=== PATIENT | male | born 1995 | race Caucasian/White ===

== ENCOUNTER 2018-09-20 16:59 | Emergency (ER) | payer OTHER ==
[2018-09-20 17:17] VITALS: TEMP 98.1; BMI 25.8
[2018-09-20] MEDS ORDERED: ONDANSETRON 4 MG/2 ML VIAL IVPUSH ONE (18:02)
[2018-09-20] MEDS ORDERED: ACETAMINOPHEN 1000 MG/100 ML VIAL (NON FORMULARY) IVPB ONE (18:02)
[2018-09-20] MEDS ORDERED: SODIUM CHLORIDE 0.9% 500 ML INFUS.BAG IV ONE (18:02)
[2018-09-20] MEDS ORDERED: ACETAMINOPHEN INJECTION 100 ML IVPB ONE (18:09)
[2018-09-20] MEDS ORDERED: ONDANSETRON 4 MG/2 ML VIAL ONE (18:10)
--- NOTE | 2018-09-20 18:17 | PDOC ---
History of Present Illness - General Chief Complaint: Rectal Bleed Stated Complaint: VOMITTING/NAUSEA/BACKPAIN Time Seen by Provider: 09/20/18 17:30 - History of Present Illness Initial Comments: Nuno Munroe is a 23yo man with a PMH of IBS, recent enterocolitis ( completed 7 days of cipro/flagyl) who presents with worsening nausea, vomiting, lower abdominal and low back pain today. He states that yesterday he felt somewhat fatigued but otherwise well. Today, he had no appetite but attempted to eat eggs for breakfast; he subsequently had multiple episodes of NBNB vomiting and dry retching today. He additionally notes an episode of a small amount of BRBPR after a bowel movement today. He saw red blood dripping into the toilet water following the BM; he does report a history of hemorrhoids diagnosed during a previous colonoscopy. He has not noticed any recent diarrhea , constipation, or straining for bowel movements. Mr Munroe reports that he currently has midline low abdominal and low back pain. The pain feels like it is deep inside, and it is a severe ache. It is non- radiating and constant. He has not had any recent fevers, chills, upper abdominal pain, known sick contacts. He states that he was diagnosed with a "colon infection" about 2 weeks ago at [facility] and prescribed antibiotics that he completed as prescribed. He continued to have abdominal discomfort, though it was no severe until today. He also endorses testicular pain "on and off for a few months" that he was told was "probably a hernia;" he has no dysuria, hematuria, penile discharge, testicular swelling or other associated symptoms. Mr Munroe has not seen urology regarding the testicular pain, and he has stopped seeing GI as he did not feel that his symptoms were improved from the medications prescribed. Past History - Past Medical History Allergies/Adverse Reactions: Allergies Allergy/AdvReac Type Severity Reaction Status Date / Time No Known Allergies Allergy Verified 09/20/18 17:17 Home Medications: Ambulatory Orders NK [No Known Home Medication] 10/19/14 Anemia: No Cancer: No Cardiac Disorders: No CVA: No COPD: No CHF: No Dementia: No GI Disorders: Yes (ABD. PAIN, RECTAL BLEEDING,) Disorders: No HTN: No Liver Disease: No Seizures: No Thyroid Disease: No - Surgical History Appendectomy: No Cardiac Surgery: No Cholecystectomy: No Orthopedic Surgery: No - Immunization History Immunization Up to Date: Yes - Suicide/Smoking/Psychosocial Hx Smoking History: Never smoked Have you smoked in the past 12 months: No Information on smoking cessation initiated: No Hx Alcohol Use: No Drug/Substance Use Hx: No Substance Use Type: Marijuana Hx Substance Use Treatment: No Review of Systems - Review of Systems Comments:: General: No fevers, no chills, no weight or appetite change, no malaise HEENT: No changes in vision, no changes in hearing, no congestion, no sore throat CV: No chest pain, no palpitations, no LE edema Pulm: No SOB, no cough, no wheezing GI: See HPI : No frequency, no urgency, no dysuria. See HPI Musc: + low back pain, no joint swelling, no recent injury Skin: No rash, no lesions, no erythema Endo: No excessive thirst, no heat/cold intolerance Heme: No unusual bruising or bleeding, no swollen glands Neuro: No syncope, no numbness/tingling, no focal weakness Vasc: No claudication Psych: No recent change in mood, no SI or HI *Physical Exam - Vital Signs Last Vital Signs Temp Pulse Resp BP Pulse Ox 98.1 F 97 H 18 158/87 100 09/20/18 17:04 09/20/18 17:04 09/20/18 17:04 09/20/18 17:04 09/20/18 17:04 - Physical Exam Comments: General: Uncomfortable but in no acute distress HEENT: PERRL, EOMI, MMM, voice normal Cards: RRR, no murmur appreciated Pulm: Comfortable on room air, clear to auscultation bilaterally Abd: Soft, nondistended. Diffuse lower abdominal TTP, no rigidity or involuntary guarding Back: No low back TTP, no midline bony tenderness : No CVA tenderness Rectal: Normal tone, no blood noted, no perianal lesions Ext: Atraumatic. No LE edema. ROM intact Vasc: Extremities WWP Skin: Normal color, no rashes or lesions Neuro: A&Ox3, CN grossly intact, normal speech, motor/sensory grossly intact and symmetric Psych: Mood appropriate to situation ED Treatment Course - LABORATORY CBC & Chemistry Diagram: 09/20/18 18:39 09/20/18 18:39 Medical Decision Making - Medical Decision Making 09/20/18 18:03 Nuno Munroe is a 23yo man with a PMH of IBS, recent enterocolitis ( completed 7 days of cipro/flagyl) who presents with worsening nausea, NBNB vomiting, lower abdominal and low back pain today. He is no longer being treated for his IBS, though he did complete the prescribed treatment for his reent colitis with continued symptoms following completion of the antibiotics. He denies any recent fevers/chills, change in bowel habits, urinary symptoms, or sick contacts but does report a small amount of BRBPR today that he believes is due to previously diagnosed hemorrhoids. - Broad differential including continued/recurrent enterocolitis, gastroenteritis, IBS flare, appendicitis. Less likely pancreatitis or cholecystitis given no upper abdominal discomfort on exam, less likely pyelo or complicated UTI given no dysuria or CVA tenderness. No abnormalities on testicular exam suggesting sigificant abnormalities or pathology - CBC, CMP, mag, UA. PT/PTT and T&S drawn, will send in case of future intervention - IVF, IV acetaminophen, zofran - CT abd/pelvis w/ contrast 09/20/18 18:19 - Seen by Dr Louis; pt requesting further exam of testicular pain. Ultrasound ordered for evaluation 09/20/18 19:40 - Labs reviewed. Notable for leukocytosis to 16. Otherwise no concerning abnormalities - Ultrasound completed and reviewed in ED. Possible left varicocele, but radiology report pending. - Pt now feeling improved. No additional vomiting. Still has low back and abd pain but less than previously. 09/20/18 21:57 - CT read available. No abnormalities noted - Updated pt regarding results. Would like to be discharged home. Was able to drink water and juice, no increased pain or additional vomiting, will d/c home. Requesting referrals for urology and GI as well as medicine clinic. Will provide w/ information. Discussed home care, follow up, and return precautions at length. Pt states understanding and agreement with the plan. Seen with Dr Louis. Romi Moreno PGY1 *DC/Admit/Observation/Transfer Diagnosis at time of Disposition: Nausea & vomiting Qualifiers: Vomiting type: unspecified Vomiting Intractability: non-intractable Qualified Code(s): R11.2 - Nausea with vomiting, unspecified - Discharge Dispostion Disposition: HOME Condition at time of disposition: Stable Decision to Admit order: No - Referrals Referrals: [facility] [place] [facility] [place] [Provider Group] Anibal Santo MD., [Staff Physician] - Vinicio Ramsey MD [Staff Physician] - - Patient Instructions Printed Discharge Instructions: DI for Irritable Bowel Syndrome, DI for Vomiting -- Adult Additional Instructions: Discharge Instructions: You were seen in the emergency department for vomiting and abdominal pain. Your symptoms improved with acetaminophen and an anti-nasuea medication. Labs completed in the ED did not show any concerning abnormalities, and your CT scan was not concerning. Your ultrasound showed a varicocele (enlarged blood vessel) in the left testicle. Home Care and Follow Up: - You have been given contact information for the internal medicine clinic, urology, and GI. Please follow up with medicine on Saturday. Make appointments with GI and urology within the next 1-2 weeks. - Make sure you are drinking plenty of fluids at home. It is OK if you are not eating much as long as you stay hydrated. - Avoid dairy, caffeine, alcohol, oily/greasy foods, and spicy foods - You indicated that you occasionally take Pepcid or Xantac. You may wish to take these daily until you are feeling better or until you see GI. You should take them first thing in the morning 30 minutes before eating. If you have continued nausea, you can take another dose in the evening for the next few days. - Consider adding a probiotic daily to help prevent diarrhea as you recently completed a course of antibiotics. - Use 650-1000mg acetaminophen (Tylenol) for pain. Do not take more than 4000mg acetaminophen per day. - If needed, you may alternate this with 400-600mg ibuprofen (advil, Motrin), but ibuprofen may cause upset stomach. If you take ibuprofen, take it with food. - Seek immediate care if you have worsening symptoms, you are unable to stay hydrated, you have fever to 101F, you have severe/abrupt worsening of your abdominal pain, or any other medical emergency. - Post Discharge Activity Forms/Work/School Notes: Back to Work
[2018-09-20 18:46] LABS: BASO % 0.3 % (0-2.0); HEMATOCRIT 45.4 % (35.4-49); HEMOGLOBIN 15.3 GM/dL (11.7-16.9); LYMPH % 10.4 % (8-40); MCH 30.4 pg (25.7-33.7); MCHC 33.7 g/dl (32.0-35.9); MEAN CELL VOLUME 90.3 fl (80-96); MEAN PLT VOLUME 8.6 fl (7.5-11.1); MONO % 5.7 % (3.8-10.2); NEUT % 83.6 % (42.8-82.8); PLATELET COUNT 198 K/MM3 (134-434); RBC 5.03 M/mm3 (4.00-5.60); RDW 12.6 % (11.9-15.9); WHITE BLOOD COUNT 16.4 K/mm3 (4.0-10.0)
[2018-09-20 19:12] LABS: INR 1.07 (0.83-1.09); PROTHROMBIN TIME (PATIENT) 12.6 SEC (9.7-13.0)
[2018-09-20 19:15] LABS: ACTIVATED PTT 31.5 SECONDS (25.2-36.5)
[2018-09-20 19:26] LABS: BILIRUBIN,TOTAL 0.6 mg/dL (0.2-1); BLOOD UREA NITROGEN 11.8 mg/dL (7-18); CALCIUM 9.9 mg/dL (8.5-10.1); CREATININE 0.9 mg/dL (0.55-1.3); MAGNESIUM 1.7 mg/dL (1.8-2.4); POTASSIUM 4.1 mmol/L (3.5-5.1); TOT PROT 8.6 g/dl (6.4-8.2)
--- NOTE | 2018-09-20 20:54 | PDOC ---
Documentation entered by Nacho Gonzalez SCRIBE, acting as scribe for Brigido Louis MD. Brigido Louis MD: This documentation has been prepared by the Carlos ascencio Collisia, SCRIBE, under my direction and personally reviewed by me in its entirety. I confirm that the documentation accurately reflects all work, treatment, procedures, and medical decision making performed by me. Attending Attestation - Resident Resident Name: JoshRomi - ED Attending Attestation I have performed the following: I have examined & evaluated the patient, The case was reviewed & discussed with the resident, I agree w/resident's findings & plan, Exceptions are as noted - HPI HPI: 09/20/18 18:20 The patient is a 23 year old male with a significant past medical history of IBS and Colitis (recently diagnosed at [facility]) who presents to the emergency department with suprapubic pain for 2 days. The patient reports some associated bright red blood stool, multiple episodes of vomiting and lower back pain. He states that he was put on antibiotics s/p his diagnosis of colitis by which he completed 1 week ago. The patient also reports some non-associated intermittent testicular pain by which he was evaluated for in the past and was told he had a hernia. The patient denies any chest pain, shortness of breath, headache, dizziness, weakness,. He denies any fever, chills, diarrhea, or constipation . the patient denies any other complaints. - Physicial Exam PE: 09/21/18 00:47 Vitals: Triage Vital signs reviewed General Appearance: no acute distress, well nourished well developed, Head: Atraumatic, Cardiac: Regular rate and rhythym, no murmurs, no rubs, no gallops, Lungs: Clear to auscultation bilateral, good air movement bilaterally, Abdomen: Soft, non distended, normal bowel sounds, non tender to palpation Genitourinary: No evidence of torsion very mild left testicular discomfort. Rectal: Exam deferred Extremities: Full range of motion to all extremities, no cyanosis, clubbing, or edema Skin: Warm and dry, no rashes or lesions, no rash, no petechiae Psych: normal mood, normal affect - Medical Decision Making 09/20/18 18:20 The patient is a 23 year old male with a significant past medical history of IBS and Colitis (recently diagnosed at [facility]) who presents to the emergency department with suprapubic pain for 2 days. He will get labs, pain medication and Ultrasound for further evaluation. 23 years old with history of irritable bowel syndrome and colitis status post recent course of by mouth antibiotics presents to the emergency department with some mild left testicular discomfort hemorrhoid with some bright red blood per rectum and some mild lower abdominal discomfort mostly suprapubic His ED course was notable for a normal scrotal ultrasound notable only for a varicocele blood work which was notable for white count of 16 and a CAT scan which demonstrated no acute or infectious pathology Given no acute findings on CAT scan and a recently finished course of antibiotics no indication at this time for additional antibiotics. Patient will follow up with her clinic on Saturday he will also follow-up with gastroenterology. He was instructed to return to the emergency department for any fever severe worsening symptoms or for any concerns.
[2018-09-20 21:13] LABS: EPI CELLS 0.3 /HPF (0-5/HPF); HYALINE CASTS 1 /lpf (0-8); URINE APPEARANCE CLEAR; URINE BACTERIA 1.5 /hpf (NEGATIVE); URINE BILIRUBIN NEGATIVE (NEGATIVE); URINE COLOR YELLOW; URINE GLUCOSE (UA) NEGATIVE (NEGATIVE); URINE KETONE 4+ (NEGATIVE); URINE LEUK ESTERASE NEGATIVE (NEGATIVE); URINE NITRITE NEGATIVE (NEGATIVE); URINE PROTEIN 1+ (NEGATIVE); URINE RBC 1 /hpf (0-4); URINE UROBILINOGEN 0.2 mg/dL (0.2-1.0); URINE WBC 1 /hpf (0-5)
[2018-09-20 22:10] VITALS: BP 134/74; PULSE 74
--- NOTE | 2018-09-23 10:38 | EKG ---
Test Reason : Blood Pressure : / mmHG Vent. Rate : 073 BPM Atrial Rate : 073 BPM P-R Int : 130 ms QRS Dur : 090 ms QT Int : 382 ms P-R-T Axes : 067 059 062 degrees QTc Int : 420 ms NORMAL SINUS RHYTHM WITH SINUS ARRHYTHMIA NORMAL ECG WHEN COMPARED WITH ECG OF 18-SEP-2014 18:26, NO SIGNIFICANT CHANGE WAS FOUND Confirmed by Wayne Mcclellan MD ([id number]) on 09/23/2018 10:38:00 AM Referred By: Confirmed By:Wayne Mcclellan MD
== END 2018-09-20 22:09 | disposition home or self-care (01) ==
LOC: JER 16:59
PROC: 3E033NZ Introduction of Analgesics, Hypnotics, Sedatives into Peripheral Vein, Percutaneous Approach (ICD-10-PCS; principal; 2018-09-20)
PROC: 3E033GC Introduction of Other Therapeutic Substance into Peripheral Vein, Percutaneous Approach (ICD-10-PCS; 2018-09-20)
DX: R11.2 Nausea with vomiting, unspecified (principal); N50.819 Testicular pain, unspecified; Z87.19 Personal history of other diseases of the digestive system
CPT/HCPCS: 36415; 74177-TC; 76870-TC; 80053; 81003; 83735; 85025; 85610; 85730; 86850; 86900; 86901; 93005; 93010; 96374; 96375; 99283-25; J0131